=== PATIENT | female | born 1945 | race Two or more races ===

== ENCOUNTER 2025-05-02 07:49 | Day surgery (SDC) | payer MEDICARE, OTHER ==
[~2025-05-02 07:49] MED LIST: ANESTHESIA TRAY IN PYXIS 1 EA TRAY MC ONE
[2025-05-02] MEDS ORDERED: LIDOCAINE HCL/MPF 1% 30 ML VIAL IJ ONE (08:03)
[2025-05-02] MEDS ORDERED: BUPIVACAINE 0.25% 75 MG/30 ML VIAL ONE (08:03)
[2025-05-02] MEDS ORDERED: IOHEXOL 50 ML IV ONE (08:03)
[2025-05-02] MEDS ORDERED: methylPREDNISolone ACETATE 80 MG/ML VIAL ONE (08:04)
== END 2025-05-02 10:45 | disposition home or self-care (01) ==
LOC: DS 07:49
PROVIDERS: ATTEND Anesthesiology
DX: M47.816 Spondylosis without myelopathy or radiculopathy, lumbar region (principal); M48.56XA Collapsed vertebra, not elsewhere classified, lumbar region, initial encounter for fracture; Z79.899 Other long term (current) drug therapy; Z98.890 Other specified postprocedural states
CPT/HCPCS: 64493; 64494; 72100; A6402; J0690; J1010; J1644; J2704; J3490; J7030; Q9967